=== PATIENT | female | born 1945 | race Caucasian/White ===

== ENCOUNTER 2022-08-21 12:23 | Emergency (ER) | payer MEDICARE, OTHER ==
[2022-08-21 13:12] LABS: BASOPHILS ABSOLUTE AUTO 0.04 K/uL (0.00-0.20); BASOPHILS PERCENT AUTO 0.4 % (0.0-2.0); HEMATOCRIT 42.5 % (34.0-46.0); HEMOGLOBIN 14.2 g/dL (11.7-15.5); LYMPHOCYTES ABSOLUTE AUTO 1.34 K/uL (0.50-3.50); LYMPHOCYTES PERCENT AUTO 13.6 % (10.0-50.0); MEAN CORPUSCULAR HEMOGLOBIN 29.5 pg (28.2-33.3); MEAN CORPUSCULAR HGB CONC 33.4 g/dL (31.7-36.0); MEAN CORPUSCULAR VOLUME 88.2 fL (84.0-98.0); MONOCYTES ABSOLUTE AUTO 0.82 K/uL (0.00-1.00); MONOCYTES PERCENT AUTO 8.3 % (2.0-14.0); NEUTROPHILS ABSOLUTE AUTO 7.53 K/uL (1.40-7.00); NEUTROPHILS PERCENT AUTO 76.7 % (45.0-80.0); PLATELET COUNT,PLT 258 K/uL (150-350); RED BLOOD CELL COUNT 4.82 M/uL (3.77-5.09); RED CELL DISTRIBUTION WIDTH 15.1 % (11.2-14.1); WHITE BLOOD CELL COUNT,WBC 9.8 K/uL (4.0-10.2)
[2022-08-21 13:28] LABS: ALANINE AMINOTRANSFERASE,ALT 16 U/L (12-78); ALKALINE PHOSPHATASE 73 IU/L (46-116); ANION GAP 5.4 meq/L (7-15); ASPARTATE AMNIOTRANSFERASE,AST 16 U/L (15-37); BILIRUBIN TOTAL 0.5 mg/dL (0.2-1.0); BLOOD UREA NITROGEN,BUN 10 mg/dL (7-18); CALCIUM 8.2 mg/dL (8.5-10.1); CARBON DIOXIDE,CO2 29.6 mmol/L (21.0-32.0); CHLORIDE,CL 103 mmol/L (98-107); CREATINE KINASE,CK 81 U/L (26-308); CREATININE 1.02 mg/dL (0.51-1.17); ESTIMATED GFR 57 mL/min (>=60); GLUCOSE RANDOM 95 mg/dL (70-99); POTASSIUM,K 3.8 mmol/L (3.5-5.1); PROTEIN TOTAL,TP 6.5 g/dL (6.4-8.2); PROTHROMBIN TIME 9.5 SEC (9.0-11.1); SODIUM,NA 138 mmol/L (136-145)
[2022-08-21] MEDS ORDERED: Sodium Chloride 0.9% 1,000 ML IV ONE ×2 (13:36→18:05)
[2022-08-21 13:37] LABS: LACTIC ACID 0.5 mmol/L (0.4-2.0)
[2022-08-21 14:32] LABS: APPEARANCE,URINE CLEAR; BILIRUBIN,URINE NEGATIVE (NEGATIVE); COLOR,URINE YELLOW; GLUCOSE,URINE NEGATIVE (NEGATIVE); KETONES,URINE NEGATIVE (NEGATIVE); LEUKOCYTE ESTERASE,URINE NEGATIVE (NEGATIVE); NITRITE,URINE NEGATIVE (NEGATIVE); OCCULT BLOOD,URINE NEGATIVE (NEGATIVE); PROTEIN,URINE NEGATIVE (NEGATIVE); UROBILINOGEN,URINE 0.2 E.U./dL (0.2-1.0)
[2022-08-21] MEDS: Iopamidol 755 Mg/ML 100 ML Bottle IVPUSH ONE (17:24)
== END 2022-08-21 21:25 ==
LOC: LL.ED 12:23
DX: G45.9 Transient cerebral ischemic attack, unspecified (principal); G45.4 Transient global amnesia
CPT/HCPCS: 36415; 70450; 70496; 70498; 70544; 80053; 81003; 82550; 82947; 83605; 85025; 85610; 96360; 96361; 99284; 99285-25; Q9967